=== PATIENT | male | born 1940 | race Caucasian/White ===

== ENCOUNTER → 2017-01-05 | Outpatient (CLI) | payer OTHER ==
[~2017-01-05] MED LIST: ANAPROX DS550 M1 PO; ASPIRIN81 M2 PO; AUGMENTIN500 MG PO; CARBAMAZEPINE100 MG PO; CITRACAL SOFT1 EACH PO; DOCUSATE SODIU100 MG PO; HYDROCODON-ACE1 EAC7 PO; IMIPRAMINE HCL25 MG PO; KLONOPIN0.5 M1 PO; LIPITOR40 MG PO; RAPAFLO8 MG PO; SIMVASTATIN20 MG PO; SIMVASTATIN40 MG PO; ST. JOSEPH ASPI81 MG PO; TEGRETOL100 MG PO; TOFRANIL25 MG PO; VITAJOY2.5 MG PO; ZESTORETIC 20-1 EAC1 NG; ZESTORETIC 20-1 EAC1 PO
== END | disposition home or self-care (01) ==
LOC: NUC 09:00
DX: R94.02 Abnormal brain scan (principal)
CPT/HCPCS: 78607; A9584